=== PATIENT | male | born 1980 | race Caucasian/White ===

== ENCOUNTER 2023-05-29 20:21 | Emergency (ER) | payer MEDICAID ==
[~2023-05-29] VITALS: Ht 177.8 cm; Wt 78.0 kg
[2023-05-29 21:07] VITALS: BP 133/89; PULSE 110; RESP 18; TEMP 98.2; O2SAT 99
== END 2023-05-29 22:52 | disposition left against medical advice (07) ==
LOC: ER 20:21
DX: H93.8X9 Other specified disorders of ear, unspecified ear (principal); Z53.21 Procedure and treatment not carried out due to patient leaving prior to being seen by health care provider
CPT/HCPCS: 99281

== ENCOUNTER 2023-11-21 18:04 | Emergency (ER) | payer MEDICAID ==
[~2023-11-21] VITALS: Ht 175.3 cm; Wt 79.0 kg
[2023-11-21 18:06] VITALS: BP 130/74; PULSE 100; RESP 16; TEMP 98.2; O2SAT 100
[2023-11-21] MEDS: SODIUM CHLORIDE 0.9% 1,000 ML IV ONE (18:23)
[2023-11-21 19:21] LABS: BASOPHILS % 0.5 % (0.0-2.0); EOSINOPHILS % 0.5 % (0.0-5.0); HEMATOCRIT. 43.6 % (42.0-52.0); HEMOGLOBIN. 15.5 g/dL (14.0-18.0); LYMPHOCYTES % 35.6 % (20.0-50.0); MEAN CORPUSCULAR HEMOGLOBIN 32.3 pg (28.0-32.0); MEAN CORPUSCULAR HGB CONC 35.6 g/dL (31.0-37.0); MEAN CORPUSCULAR VOLUME 90.9 fL (80.0-94.0); MEAN PLATELET VOLUME 9.4 fl (7.4-10.4); MONOCYTES % 6.2 % (2.0-8.0); NEUTROPHILS % 57.2 % (40.0-76.0); PLATELET 225 x1000/uL (130-400); RED BLOOD CELL COUNT 4.79 mill/uL (4.7-6.1); RED CELL DISTRIBUTION WIDTH 13.3 % (11.6-14.6); WHITE BLOOD COUNT 7.5 x1000/uL (4.5-11.0)
[2023-11-21 19:28] LABS: CHLORIDE 102 mEq/L (98-107); POTASSIUM 3.3 mEq/L (3.5-5.1); SODIUM 140 mEq/L (136-145)
[2023-11-21 19:29] LABS: CALCIUM 9.1 mg/dL (8.7-10.4); CARBON DIOXIDE 28 mEq/L (21-32)
[2023-11-21 19:34] LABS: GLUCOSE 103 mg/dL (70-105); UREA NITROGEN BLOOD 10 mg/dL (9-23)
[2023-11-21 19:35] LABS: ETHANOL BLOOD 228 mg/dL (<10)
[2023-11-21] MEDS: POTASSIUM CHLORIDE 20MEQ/PACKET PO ONE (20:05)
== END 2023-11-22 04:15 | disposition home or self-care (01) ==
LOC: ER 18:04
DX: R41.82 Altered mental status, unspecified (principal); F10.129 Alcohol abuse with intoxication, unspecified; F12.10 Cannabis abuse, uncomplicated; Y90.7 Blood alcohol level of 200-239 mg/100 ml
CPT/HCPCS: 80048; 80320; 85025; 36415; 70450; 93005; 96360; 96361; 99284; J7030; G0480